=== PATIENT | male | born 1960 | race Caucasian/White ===

== ENCOUNTER → 2016-11-14 | Outpatient (CLI) | payer BC ==
[~2016-11-14] MED LIST: ALL180 PO; EPP3 IM; HYDC25 PO
--- NOTE | 2016-11-15 06:47 | DIAGNOSTIC IMAGING REPORT ---
RIGHT LOWER EXTREMITY WITHOUT HISTORY: 56 years-old Male acute right ankle tendinosis. COMPARISON: None available TECHNIQUE: Multiple axial CT images of the right lower extremity hindfoot were obtained without IV contrast. Coronal and sagittal reformatted images were obtained from neck to data set and submitted for review. A dose lowering technique was used consistent with the principals of KRISHNA. FINDINGS: Note is made of pes planus deformity. Moderate to severe subtalar degenerative changes are present, most pronounced involving the middle subtalar joint where there is prominent subchondral sclerosis and cystic change with joint space narrowing. Loose bodies are seen within the posterior subtalar joint measuring up to 4 mm. Joint space narrowing with marginal spurring is seen within the talonavicular joint as well. There is prominent spurring of the posterior lateral aspect of the talar dome. No definite osteochondral defect of the talus. Prominent spurring of the anterior tibial plafond is noted. Midfoot alignment is anatomic. 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 No acute fracture or dislocation is identified. Subcortical cystic changes are seen within the proximal aspect of the first cuneiform. There are small bone fragments noted measuring up to 2 mm in the distal fibular syndesmosis. There is thickening of the soft tissues within the region of the anterior talofibular ligament suggesting prior sprain. These structures are not well seen on CT. The peroneal brevis and longus tendons are grossly intact. The Achilles tendon is unremarkable. The tibialis posterior tendon is not well seen and there is moderate atrophy of the tibialis posterior musculature (nicely seen on image 10 of the axial soft tissue window series). There is moderate thickening of the tibialis anterior tendon without definite tear suggesting tendinosis. No large joint effusion. IMPRESSION: 1. 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 There is associated at least moderate atrophy of the imaged tibialis posterior musculature. This finding could be further evaluated with dedicated MRI of the ankle. 2. 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 Small loose bodies are noted within the posterior subtalar joint. 3. Moderate osteoarthritis of the tibiotalar joint. 4. Suspected tendinosis of the tibialis anterior tendon. The above report was generated using voice recognition software. It may contain grammatical, syntax or spelling errors. Electronically signed by: Chaka Valles M.D. 11/14/2016 3:25 PM Dictated Date/Time: 11/14/2016 3:12 PM
== END | disposition home or self-care (01) ==
LOC: C.CTS 14:31
PROVIDERS: ATTEND Podiatrist Foot & Ankle Surgery
DX: M76.821 Posterior tibial tendinitis, right leg (principal); M21.41 Flat foot [pes planus] (acquired), right foot; M62.571 Muscle wasting and atrophy, not elsewhere classified, right ankle and foot; M19.071 Primary osteoarthritis, right ankle and foot

== ENCOUNTER 2018-08-17 11:21 | Observation (INO) ==
[2018-08-17] MEDS ORDERED: SODIUM CHLORIDE 0.9% 1000ML 1,000 ML IV ONE (11:49)
[2018-08-17] MEDS ORDERED: methylPREDNISolone 125 MG/2 ML VIAL IV STA (11:49)
[2018-08-17] MEDS ORDERED: FAMOTIDINE 20MG IV PUSH 20 MG/5 ML SYR IV STA (11:49)
[2018-08-17] MEDS ORDERED: DiphenhydrAMINE HCL 50 MG/ML VIAL IV STA (11:49)
[2018-08-17 11:58] LABS: Basophils # (auto) 0.01 K/uL (0-0.2); Basophils % (auto) 0.1 %; Eosinophils # (auto) 0.28 K/uL (0-0.5); Eosinophils % (auto) 3.6 %; Hematocrit (blood only) 43.3 % (42-52); Immature Granulocytes # (auto) 0.03 K/uL (0.00-0.02); Immature Granulocytes % (auto) 0.4 %; Lymphocytes # (auto) 2.03 K/uL (1.2-3.4); Lymphocytes % (auto) 25.8 %; Mean Corpuscular Hgb Conc 34.6 g/dL (32-36); Mean Corpuscular Volume 93.9 fL (80-100); Mean Platelet Volume 8.9 fL (7.4-10.4); Monocytes # (auto) 0.67 K/uL (0.11-0.59); Monocytes % (auto) 8.5 %; Neutrophils # (auto) 4.86 K/uL (1.4-6.5); Neutrophils % (auto) 61.6 %; Platelet Count 341 K/uL (130-400); RDW Coefficient of Variation 13.3 % (11.5-14.5); RDW Standard Deviation 45.8 fL (36.4-46.3); Red Blood Count 4.61 M/uL (4.7-6.1); White Blood Count 7.88 K/uL (4.8-10.8)
[2018-08-17 12:13] LABS: BUN Creatinine Ratio 11.4 (10-20); Calcium 8.9 mg/dl (8.5-10.1); Creatinine Clr Calc Pharmacy 92.8 ml/min; Est GFR (African American) 97.9; Est GFR (Non-African American) 84.5; Potassium 4.1 mmol/L (3.5-5.1)
--- NOTE | 2018-08-17 13:31 | History & Physical Report ---
Date of Service August 17, 2018 Assessment & Plan (1) Angioedema: This is a 58 yo M with a PMH of HTN, HLD and h/o angioedema who presents with facial/lip swelling starting 3 days ago. -Tongue swelling improved, still with R lip and facial swelling -No difficulty speaking, swallowing, no SOB. Vital signs stable, O2 sat 94% on RA. 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 Patient seen in collaboration with Dr. Graham. Please see addendum. History of Present Illness Chief Complaint: mouth/facial swelling Primary Care Provider: Danilo Snow MD This is a 58 yo M with a PMH of HTN, HLD and h/o angioedema who presents with facial/lip swelling starting 3 days ago. Patient first noticed a swollen tongue followed by facial swelling the next 2 days. Denies any difficulty breathing, speaking or swallowing. Has history of intermittent angioedema beginning in 2009 and has followed with [facility]. Sometimes swelling resolved with PO Benadryl but has also presented to ED a few times over the years for IV steroids and benadryl. No obvious cause has been found and underlying problem such as hereditary angioedema has been ruled out. Dr. Geller feels that this is an autoimmune process directed against the IgE receptor and patient has been asked to avoid NSAIDs and SRIDEVI inhibitor. Patient denies taking any medications, including SRIDEVI/ARB or pain medications. Has Benadryl to take at home but did not resolve symptoms. Also has Epipen at home but did not need to use. Denies any new food or drink in the last few weeks. No fever, chills, lightheadedness, headache, sore throat, chest pain, palpitations, SOB, nausea, vomiting, abdominal pain, dysuria, diarrhea, constipation or lower extremity swelling. Allergies Allergy/AdvReac Type Severity Reaction Status Date / Time Penicillins Allergy Intermediate SWELLING Verified 08/17/18 12:03 OF LIPS amlodipine Allergy Unknown UNKNOWN Verified 08/17/18 12:03 naproxen Allergy Unknown UNKNOWN Verified 08/17/18 12:03 tramadol Allergy Unknown UNKNOWN Verified 08/17/18 12:03 Home Medications Home Medications Medication Instructions Recorded Confirmed Type No Known Home Medications 08/17/18 08/17/18 History Past Med/Surg History Medical History Angioedema (Chronic) Tobacco use disorder (Chronic) HLD (hyperlipidemia) (Chronic) HTN (hypertension) (Chronic) Surgical History H/O hernia repair (Chronic) History of ankle fusion (Chronic) Family History Other No pertinent family history Social History Preferred Language: Kyrgyz Communication Ability: Effective 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 Physical Exam Physical Exam: General Appearance: WD/WN, no apparent distress, resting comfortably Head: normocephalic, atraumatic Eyes: normal inspection, PERRL, EOMI ENT: Right sided lip and facial swelling. No tongue swelling noted. Moist mucous membranes. No erythema or tonsillar exudates Neck: supple, no JVD, no adenopathy Respiratory/Chest: lungs clear to auscultation. No wheezes, rales or rhonci. No respiratory distress or accessory muscle use Cardiovascular: regular rate, rhythm, no murmur, normal peripheral pulses Abdomen/GI: normal bowel sounds, soft, non-tender to palpation Extremities/Musculoskelatal: normal inspection, no calf tenderness, normal capillary refill, no pedal edema Neurologic/Psych: alert, normal mood/affect, oriented x 3 Skin: normal color, warm/dry Results & Data Vital Signs (Past 12 Hours) Vital Signs Temp Pulse Pulse Resp BP BP Pulse Ox 08/17/18 12:16 82 20 145/93 H 95 08/17/18 11:23 36.8 C 102 H 20 184/111 H 93 Laboratory Results Short CBC 08/17/18 Range/Units 11:44 WBC 7.88 (4.8-10.8) K/uL Hgb 15.0 (14.0-18.0) g/dL Hct 43.3 (42-52) % Plt Count 341 (130-400) K/uL BMP 08/17/18 11:44 Sodium 140 Potassium 4.1 Chloride 106 Carbon Dioxide 27 BUN 11 Creatinine 0.97 Glucose 161 H Calcium 8.9 Supervising Physician Co-Signing Physician Notes Care coordinated with SORAIDA Navas. Agree with above note. Patient seen and examined. Please refer to her notes for full details. Vital signs reviewed. Physical exam: General exam: Alert and oriented. Not in acute distress. HEENT: Facial swelling on right side with swollen lips CVS: S1 and S2 heard, regular rate and rhythm, no murmurs. RS: Clear to auscultation, no wheezing or crackles. ABD: Soft, bowel sounds present, nontender, no distention. DIVISION HEAD: Nonfocal. EXT: No edema, no erythema. Labs: Reviewed. Assessment and plan: 58y M with hx of allergic reactions presents with right facial and lips swelling. He says hx of allergic reactions in the past. Follwed up with underbaster. Presents with right facial and lips swelling. No sob or difficultry swallowing. Hemodynamics stable. Angioedema Right facial and lips swelling received iv steroids, iv benadryl and pepcid in ER Will continue iv steroids , will add po zyrtec and zantac. Iv benadryl prn monitor on tele when stable will d/c on steroid taper and zyrtec and zantac needs allergy followup on discharge Hx of HTn used to be on loartan in the past not taking since one year will monitor BP in the hospital needs clse followup Pre diabetes will follow hba1c levels Other diagnosis and plan of care as per []. Norberto jaimes MD.
[2018-08-17] MEDS ORDERED: ONDANSETRON INJ 2 MG/ML 2 ML VIAL IV PRN (14:40)
[2018-08-17] MEDS ORDERED: ACETAMINOPHEN 325 MG TAB PO PRN (14:40)
[2018-08-17] MEDS ORDERED: POLYETHYLENE (MIRALAX) 17 GM PACK PO PRN (14:40)
[2018-08-17] MEDS ORDERED: DiphenhydrAMINE HCL 50 MG/ML VIAL IV PRN (14:40)
--- NOTE | 2018-08-17 16:50 | Emergency Department Note ---
Entered by Luz Aaron acting as a scribe for Tam Patterson History of Present Illness General Chief complaint: Allergic Reaction Stated complaint: ALLERGIC REACTION Time Seen by Provider: 08/17/18 11:44 Source: patient Limitations: no limitations History of Present Illness Onset (ago): week(s) 1 Location: face and mouth Severity: similar to prior episodes Pain Consistency: + other (worsening) Quality: + other (allergic reaction) Relieved By: + none Associated symptoms: + other (difficulty breathing) The patient is a 58 year old male who presents to the ED complaining of an a llergic reaction that began a week ago with a swollen tongue. He notes that it's been worsening since then, and he woke up with lip swelling this morning. The patient notes that this is similar to previous episodes, but it has not occurred for at least 2 years. He states that he does not know the cause of these reactions, denying exposure to anything new. The patient denies any difficulty breathing. He denies the use of any blood pressure medications. The patient denies any personal or family history of angioedema. He states that he took some Mucinex and lu seltzer, but neither provided relief. Home Medications Home Medications Medication Instructions Recorded Confirmed Type No Known Home Medications 08/17/18 08/17/18 History Allergies Allergy/AdvReac Type Severity Reaction Status Date / Time Penicillins Allergy Intermediate SWELLING Verified 08/17/18 12:03 OF LIPS amlodipine Allergy Unknown UNKNOWN Verified 08/17/18 12:03 naproxen Allergy Unknown UNKNOWN Verified 08/17/18 12:03 tramadol Allergy Unknown UNKNOWN Verified 08/17/18 12:03 Past Med/Surg History Medical History Angioedema (Chronic) Tobacco use disorder (Chronic) HLD (hyperlipidemia) (Chronic) HTN (hypertension) (Chronic) Surgical History H/O hernia repair (Chronic) History of ankle fusion (Chronic) Family History Other No pertinent family history Social History Preferred Language: Chilean Communication Ability: Effective 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 and A total of 10 systems reviewed and were otherwise negative Physical Exam Vital Signs Vital Signs - 24 hr 08/17/18 11:23 08/17/18 12:16 08/17/18 14:14 Temperature 36.8 C Temperature Source Oral Sepsis Recent Fever Within 48 Hours No Sepsis Action Taken by Nursing No Action Required Pulse Rate 102 H 71 Pulse Rate [Apical] 82 Respiratory Rate 20 20 18 Respiratory Effort / Characteristics Non-Labored Respiratory Depth Normal Blood Pressure 184/111 H 146/83 H Blood Pressure [Left Arm] 145/93 H Blood Pressure Mean 135 Blood Pressure Mean [Left Arm] 110 Blood Pressure Position [Left Arm] Pulse Oximetry 93 95 94 Oxygen Delivery Method Room Air Room Air Room Air 08/17/18 14:36 08/17/18 15:06 Temperature 37 C Temperature Source Oral Sepsis Recent Fever Within 48 Hours Sepsis Action Taken by Nursing Pulse Rate 86 Pulse Rate [Apical] 83 Respiratory Rate 20 Respiratory Effort / Characteristics Respiratory Depth Blood Pressure Blood Pressure [Left Arm] 178/101 H Blood Pressure Mean Blood Pressure Mean [Left Arm] 126 Blood Pressure Position [Left Arm] Sitting Pulse Oximetry 93 Oxygen Delivery Method Room Air GENERAL: He is oriented to person, place, and time. He appears well-developed and well-nourished. He does not appear distressed. HENT: Exam performed. - Head: Normocephalic and atraumatic. - Right Ear: External ear normal. No mastoid tenderness. - Left Ear: External ear normal. No mastoid tenderness. - Mouth/Throat: The oropharynx is clear and moist. No trismus in the jaw. No dental abscesses or uvula swelling. No oropharyngeal exudate or tonsillar abscesses. He has right lower lip swelling consistent with the appearance of angioedema. There is no tongue elevation or submental swelling. He has no uvular swelling. EYES: Conjunctivae and EOM are normal. Pupils are equal, round, and reactive to light. Right eye exhibits no discharge. Left eye exhibits no discharge. No scleral icterus. NECK: Normal range of motion. Neck supple. No JVD present. No spinous process tenderness present. No carotid bruit present. No rigidity. No tracheal deviation and normal range of motion present. No Brudzinski's sign and no Kernig's sign noted. CV: Normal rate, regular rhythm, normal heart sounds and intact distal pulses. There is no peripheral edema. Palpable radial pulses bue. PULM/CHEST: Effort normal and breath sounds normal. No respiratory distress. No stridor. He has no wheezes. He has no rales. - Chest Wall: He exhibits no tenderness. ABD: The abdomen is soft. Bowel sounds are normal. He has no distension. No mass is present. There is no tenderness. There is no rebound, no guarding, no Montanez's sign and no tenderness at McBurney's point. Rovsig negative. MUSC/SKEL: Normal range of motion. There is no peripheral edema, tenderness or deformity. LYMPH: No cervical adenopathy. NEURO: He is alert and oriented to person, place, and time. He has normal strength. No cranial nerve deficit or sensory deficit. Coordination and gait normal. GCS eye subscore is 4. GCS verbal subscore is 5. GCS motor subscore is 6. Cerebellar tests wnl. SKIN: Skin is warm and dry. He is not diaphoretic. PSYCH: He has a normal mood and affect. Behavior is normal. Judgment and thought content normal. Course 1145: The patient was evaluated in room C10. A complete history and physical exam was performed. 1215:Vital signs were stable. He was in no respiratory distress. The swelling had not improved status post steroids and antihistamines. There was no swelling to the uvula or tongue. I believe the lip swelling to be an unknown cause of angioedema. I spoke with Yesenia Maurice PA-C, about the patient's case. She will further evaluate the patient. [facility] Consultations Consultation #1: I spoke with Yesenia Maurice PA-C, about the patient's case. She will further evaluate the patient. He will be admitted to Dr. Graham [facility]. Time: 12:22 Administered Medications Discontinued Medications Diphenhydramine HCl (Benadryl) 25 mg IV NOW STA Stop: 08/17/18 11:50 Last Admin: 08/17/18 12:07 Dose: 25 mg Documented by: [id number] Famotidine (Pepcid 20mg Iv Push) 20 mg in 5 mls @ 2.5 mls/min IV NOW STA Stop: 08/17/18 11:50 Last Admin: 08/17/18 12:07 Dose: 2.5 mls/min Documented by: [id number] Sodium Chloride (Nss 1000ml) 1,000 mls @ 999 mls/hr IV .Q1H1M ONE Stop: 08/17/18 12:49 Last Infusion: 08/17/18 14:46 Dose: 0 mls/hr Documented by: [id number] Admin: 08/17/18 12:07 Dose: 999 mls/hr Documented by: [id number] Methylprednisolone (Solumedrol) 125 mg IV NOW STA Stop: 08/17/18 11:50 Last Admin: 08/17/18 12:07 Dose: 125 mg Documented by: [id number] Medical Decision Making Medical Records Attestation: I reviewed the patient's medical records. Home Medications Current Medication List: was personally reviewed by me Laboratory Data Attestation: I reviewed the patient's lab results. Result diagrams: 08/17/18 11:44 08/17/18 11:44 Lab Results 08/17/18 08/17/18 08/17/18 Range/Units 11:44 11:44 11:44 WBC 7.88 (4.8-10.8) K/uL RBC 4.61 L (4.7-6.1) M/uL Hgb 15.0 (14.0-18.0) g/dL Hct 43.3 (42-52) % MCV 93.9 (80-100) fL MCH 32.5 (25-34) pg MCHC 34.6 (32-36) g/dL RDW Std Deviation 45.8 (36.4-46.3) fL RDW Coeff of Caro 13.3 (11.5-14.5) % Plt Count 341 (130-400) K/uL MPV 8.9 (7.4-10.4) fL Immature Gran % (Auto) 0.4 % Neut % (Auto) 61.6 % Lymph % (Auto) 25.8 % Simpson % (Auto) 8.5 % Eos % (Auto) 3.6 % Baso % (Auto) 0.1 % Immature Gran # (Auto) 0.03 H (0.00-0.02) K/uL Neut # (Auto) 4.86 (1.4-6.5) K/uL Lymph # (Auto) 2.03 (1.2-3.4) K/uL Simpson # (Auto) 0.67 H (0.11-0.59) K/uL Eos # (Auto) 0.28 (0-0.5) K/uL Baso # (Auto) 0.01 (0-0.2) K/uL Sodium 140 (136-145) mmol/L Potassium 4.1 (3.5-5.1) mmol/L Chloride 106 (98-107) mmol/L Carbon Dioxide 27 (21-32) mmol/L Anion Gap 8.0 (3-11) BUN 11 (7-18) mg/dl Creatinine 0.97 (0.6-1.4) mg/dl Est Cr Clr Drug Dosing 92.8 ml/min Est GFR ( Amer) 97.9 Est GFR (Non-Af Amer) 84.5 BUN/Creatinine Ratio 11.4 (10-20) Glucose 161 H (70-99) mg/dl Calcium 8.9 (8.5-10.1) mg/dl Hepatitis C Ab Screen Neg (Neg) Blood Pressure Blood Pressure Findings: Elevated blood pressure Blood Pressure Disposition: further management by hospitalist SARANYA Narrative Vital signs were stable. He was in no respiratory distress. The swelling had not improved status post steroids and antihistamines. There was no swelling to the uvula or tongue. I believe the lip swelling to be an unknown cause of angioedema. I spoke with Yesenia Maurice PA-C, about the patient's case. She will further evaluate the patient. He will be [facility]. Impression & Plan Angioedema Discharge Plan Visit Data *Final* Discharge Date/Time: 08/17/18 14:14 Chief Complaint: Allergic Reaction Stated Complaint: ALLERGIC REACTION ED Provider: Tam Patterson Discharge Problem: Angioedema Patient Disposition: Admitted As Inpatient Discharge Instructions Interventions: ED Discharge Assessment Last Done: 08/17/18 14:14 Discharge Problem: Angioedema Qualifiers: Encounter type: initial encounter Qualified Code(s): T78.3XXA - Angioneurotic edema, initial encounter The scribe's documentation has been prepared under my direction and personally reviewed by me in its entirety. I confirm that the note above accurately reflects all work, treatment, procedures, and medical decision making performed by me.
[2018-08-17] MEDS: methylPREDNISolone 40 MG in SYRINGE 0 ML IV SCH (19:18)
[2018-08-17] MEDS ORDERED: CETIRIZINE HCL 10 MG TABLET PO SCH (21:00)
[2018-08-18] MEDS: methylPREDNISolone 40 MG in SYRINGE 0 ML IV SCH ×2 (04:24→11:32)
[2018-08-18 05:33] LABS: Hematocrit (blood only) 41.8 % (42-52); Hemoglobin 14.4 g/dL (14.0-18.0); Mean Corpuscular Hgb Conc 34.4 g/dL (32-36); Mean Corpuscular Volume 92.5 fL (80-100); Mean Platelet Volume 8.8 fL (7.4-10.4); Platelet Count 374 K/uL (130-400); RDW Coefficient of Variation 12.8 % (11.5-14.5); RDW Standard Deviation 43.6 fL (36.4-46.3); Red Blood Count 4.52 M/uL (4.7-6.1); White Blood Count 7.19 K/uL (4.8-10.8)
[2018-08-18 05:59] LABS: BUN Creatinine Ratio 15.2 (10-20); Calcium 8.8 mg/dl (8.5-10.1); Est GFR (African American) 101.7; Est GFR (Non-African American) 87.8; Potassium 4.3 mmol/L (3.5-5.1)
[2018-08-18 06:33] LABS: Estimated Average Glucose 177 mg/dl; Hemoglobin A1C 7.8 % (4.5-5.6)
[2018-08-18 15:54] VITALS: PULSE 85
[2018-08-18 15:55] VITALS: TEMP 97.3; O2SAT 95
--- NOTE | 2018-08-18 16:07 | Hospitalist Progress Note ---
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 Present on admission with facial/lip swelling No airway compromise Saturated well on RA On Solumedrol IV 40mg TID, IV Benadryl PRN, added Zyrtec and Zantac Avoid SRIDEVI inhibitors and NSAIDs Lips swelling resolved Facial swelling seems to get back to normal Will discharge on prednisone, pepcid and Zyrtec and continue benadryl prn Advised pt if develops any allergic reaction (facial and lip swelling) to seek medical attention HTN BP elevated Possible related to hospital setting and steroid Was on Losartan in the past but has not been taking it Does not want to start on BP med now He agreed to check his BP at home and keep a log to bring to his PCP at the next appt on Friday with PCP Continue monitor BP Newly diagnosed DM type 2 BS elevated Hba1c 7.8 Will start on Metformin daily Check Hba1c in 3 to 6 months counseling about Lifestyle modification and weight loss DVT Ppx: SCDs Code status: FULL PCP: Gwendolyn Dispo: Follow up with your primary care provider Dr. Snow on 08/21 @ 10:45 AM Subjective Pt was seen and examined Lying in bed with no distress Pt said that he feels fine His lips swelling resolved He said that his right side facial area swelling seems to be gone completely Pt said that when he goes to his PCP, his BP usually high, but before he leaves the office the check it and his BP gets back to normal He said that he was on amlodipine that was changed to Losartan that was discontinued because of recurrent episode of Angioedema Pt said that he does have a blood pressure machine at home and would like to check his BP at home before starting a new BP med He has a follow up hospital discharge appt with his PCP on Friday He said that he just found during the hospital course that he has diabetes Denies any chest pain, palpitation, dizziness and SOB Physical Exam Physical Exam: General- No acute distress Head- atraumatic Eyes- PERRL, EOMI, ENT- oropharynx clear, no tongue swelling Neck- supple, no JVD Lungs- clear to auscultation Heart- regular rhythm; no murmur Abdomen- normal bowel sounds, soft, nontender Extremities- no calf tenderness Neuro- alert, oriented x 3; PERRL, EOMI; no facial palsy; no dysarthria Skin- warm & dry Results & Data Vital Signs (Past 12 Hours) Vital Signs Temp Pulse Pulse Resp BP Pulse Ox 08/18/18 15:40 36.3 C L 85 20 174/94 H 95 08/18/18 15:29 87 08/18/18 12:09 36.5 C 103 H 20 152/79 H 93 08/18/18 07:57 36.8 C 71 18 156/78 H 99
[2018-08-18] MEDS ORDERED: METFORMIN HCL ER 500 MG TABCR PO SCH (17:00)
[2018-08-18 17:25] VITALS: BP 164/88
--- NOTE | 2018-08-19 07:24 | Discharge Summary ---
Date of Service August 18, 2018 Admission HPI Per Admitting Provider This is a 58 yo M with a PMH of HTN, HLD and h/o angioedema who presents with facial/lip swelling starting 3 days ago. Patient first noticed a swollen tongue followed by facial swelling the next 2 days. Denies any difficulty breathing, speaking or swallowing. Has history of intermittent angioedema beginning in 2009 and has followed with [facility]. Sometimes swelling resolved with PO Benadryl but has also presented to ED a few times over the years for IV steroids and benadryl. No obvious cause has been found and underlying problem such as hereditary angioedema has been ruled out. Dr. Geller feels that this is an autoimmune process directed against the IgE receptor and patient has been asked to avoid NSAIDs and SRIDEVI inhibitor. Patient denies taking any medications, including SRIDEVI/ARB or pain medications. Has Benadryl to take at home but did not resolve symptoms. Also has Epipen at home but did not need to use. Denies any new food or drink in the last few weeks. No fever, chills, lightheadedness, headache, sore throat, chest pain, palpitations, SOB, nausea, vomiting, abdominal pain, dysuria, diarrhea, constipation or lower extremity swelling. Admission Exam Per Admitting Provider General Appearance: WD/WN, no apparent distress, resting comfortably Head: normocephalic, atraumatic Eyes: normal inspection, PERRL, EOMI ENT: Right sided lip and facial swelling. No tongue swelling noted. Moist mucous membranes. No erythema or tonsillar exudates Neck: supple, no JVD, no adenopathy Respiratory/Chest: lungs clear to auscultation. No wheezes, rales or rhonci. No respiratory distress or accessory muscle use Cardiovascular: regular rate, rhythm, no murmur, normal peripheral pulses Abdomen/GI: normal bowel sounds, soft, non-tender to palpation Extremities/Musculoskelatal: normal inspection, no calf tenderness, normal capillary refill, no pedal edema Neurologic/Psych: alert, normal mood/affect, oriented x 3 Skin: normal color, warm/dry Principal Diagnosis Angioedema Hypertension Diabetes Discharge Exam General- No acute distress Head- atraumatic Eyes- PERRL, EOMI, ENT- oropharynx clear, no tongue swelling Neck- supple, no JVD Lungs- clear to auscultation Heart- regular rhythm; no murmur Abdomen- normal bowel sounds, soft, nontender Extremities- no calf tenderness Neuro- alert, oriented x 3; PERRL, EOMI; no facial palsy; no dysarthria Skin- warm & dry Discharge Data Allergies Allergy/AdvReac Type Severity Reaction Status Date / Time Penicillins Allergy Intermediate SWELLING Verified 08/17/18 12:03 OF LIPS amlodipine Allergy Unknown UNKNOWN Verified 08/17/18 12:03 naproxen Allergy Unknown UNKNOWN Verified 08/17/18 12:03 tramadol Allergy Unknown UNKNOWN Verified 08/17/18 12:03 Consultations 08/17/18 12:22 ED Decision to Admit Stat Hospital Course (1) Angioedema: 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 Present on admission with facial/lip swelling No airway compromise Saturated well on RA On Solumedrol IV 40mg TID, IV Benadryl PRN, added Zyrtec and Zantac Avoid SRIDEVI inhibitors and NSAIDs Lips swelling resolved Facial swelling seems to get back to normal Will discharge on prednisone, pepcid and Zyrtec and continue benadryl prn Advised pt if develops any allergic reaction (facial and lip swelling) to seek medical attention HTN BP elevated Possible related to hospital setting and steroid Was on Losartan in the past but has not been taking it Does not want to start on BP med now He agreed to check his BP at home and keep a log to bring to his PCP at the next appt on Friday with PCP Continue monitor BP Newly diagnosed DM type 2 BS elevated Hba1c 7.8 Will start on Metformin daily Check Hba1c in 3 to 6 months counseling about Lifestyle modification and weight loss DVT Ppx: SCDs Code status: FULL PCP: Gwendolyn Dispo: Follow up with your primary care provider Dr. Snow on 08/21 @ 10:45 AM Total Time Total Time Spent Total Time Spent (In Minutes): 35 minutes Total Time Includes: Examination of the Patient, Discharge Planning, Medication Reconciliation, Communication With Other Providers and Other Discharge Plan Discharge Items Patient Disposition: Home - Self-Care Reason For Visit: ANGIOEDEMA/FACIAL SWELLING Discharge Diagnosis: Angioedema Hypertension Diabetes Discharge Goals: Decrease discomfort, Improve disease control, Increase independence and Improve nutritional status Activity: Resume your previous activity Non-emergency contact: Primary Care Provider Call non-emergency contact if: you have any medication questions Follow-up/Referrals: Danilo Snow MD [Primary Care Provider] - Diet: Carb Consistent or DM2 Addtl Provider Instructions: Follow up with your primary care provider Dr. Snow on 08/21 @ 11:45 AM Follow up with your Investigation Manager doctor Check your blood pressure and keep a blood pressure log Bring the blood pressure log at your next appointment with Dr. Snow Follow up a healthy diabetes diet with low carb and limited concentrated sugar intake Counseling on weight loss Check your Hba1c between 3 to 6 month for your diabetes Continue Benadryl as needed if swelling reoccurs Prescriptions: New prednisone 20 mg tablet 40 mg PO DAILY 7 Days Qty: 14 RF: 0 famotidine [Pepcid] 20 mg tablet 20 mg PO BID 7 Days Qty: 14 RF: 0 cetirizine 10 mg Tablet 10 mg PO HS 7 Days Qty: 7 RF: 0 metformin 500 mg Tablet Extended Release 24 Hr 500 mg PO QDB 30 Days Qty: 30 RF: 0 diphenhydramine HCl [Benadryl Allergy] 25 mg tablet 25 mg PO Q8H PRN (Reason: any allergic reaction) Qty: 30 RF: 0 No Action No Known Home Medications RF: 0 Stand-Alone Forms: My Possible Web/Other Patient Handouts: Metformin Hydrochloride Oral tablet, Hyperglycemia, Diabetes Healthy Meals, Blood Sugar Manage Exercise, ED Angioe sandra Discharge Orders: Discharge Order (Routine); Ordered 08/18/18 Ordered By: Gallo Schaefer Admission Data Admit Date/Time: 08/17/18 13:09 Attending Provider: Gallo Schaefer Admit Provider: Norberto Graham Primary Care Provider: Danilo Snow Other Providers: Norberto Graham Service: Telemetry Other Interventions: Discharge Summary Assessment (RN) Last Done: 08/18/18 16:33 DC Date/Time DO NOT enter until pt leaves facility: 08/18/18 17:58
== END 2018-08-18 17:58 | disposition home or self-care (01) ==
LOC: ED 11:21 → 2S 11:21